=== PATIENT | female | born 1950 | race Caucasian/White ===

== ENCOUNTER → 2016-06-06 | Outpatient (CLI) | payer BC ==
[~2016-06-06] MED LIST: BUPRTAB51 PO; GLC500 PO; IBUP600T44 PO; LEVO75TA5 PO; MULT-506 PO; PRED1SUS3; ZCR10 PO
--- NOTE | 2016-06-06 14:34 | DIAGNOSTIC IMAGING REPORT ---
LEFT WRIST MIN 3 VIEWS ROUTINE CLINICAL HISTORY: LEFT WRIST FX fracture COMPARISON: 05/13/2016 DISCUSSION: Cortical fracture dorsal aspect distal radius is now apparent. There may be partial bony bridging and/or fibrous tissue formation. Estimated distraction is approximately 2.5 mm. Degenerative changes described previously are again noted. There is no evidence for soft tissue swelling. IMPRESSION: Avulsion fracture dorsal aspect distal radius showing potential early healing Electronically signed by: Domenic Rosales M.D. 06/06/2016 2:32 PM
== END | disposition home or self-care (01) ==
LOC: C.RDSM 08:00
PROVIDERS: ATTEND Family Medicine
DX: S62.102A Fracture of unspecified carpal bone, left wrist, initial encounter for closed fracture (principal); X58.XXXA Exposure to other specified factors, initial encounter

== ENCOUNTER → 2016-09-07 | Outpatient (CLI) | payer BC ==
[2016-09-07 13:34] LABS: ESTIMATED AVERAGE GLUCOSE 126 mg/dl; HA1C FLAG Normal (Normal)
[2016-09-07 13:58] LABS: ALB/GLOB RATIO 1.1 (0.9-2); ALT/SGPT 20 U/L (12-78); AST/SGOT 15 U/L (15-37); BLOOD UREA NITROGEN 15 mg/dl (7-18); BUN/CREATININE RATIO 12.8 (10-20); CALCIUM 9.1 mg/dl (8.5-10.1); CARBON DIOXIDE 32 mmol/L (21-32); CHLORIDE 104 mmol/L (98-107); GLUCOSE 102 mg/dl (70-99); POTASSIUM 4.3 mmol/L (3.5-5.1); SODIUM 141 mmol/L (136-145)
[2016-09-07 14:10] LABS: ALKALINE PHOSPHATASE 103 U/L (45-117)
--- NOTE | 2016-09-11 11:23 | CODING QUERY MEDICAL NECESSITY ---
SUPPORTING DIAGNOSIS NEEDED Dr. Dahl, A supporting diagnosis is required for the test/procedure performed on this patient in order for us to be reimbursed by the patient's insurance. Please provide a supporting diagnosis for the following test/procedure listed below next to the test name along with your signature. *If there is no additional diagnosis for this patient that would support the following test/procedure please document that below next to the test/procedure. Test(s)/Procedure(s) that require a supporting diagnosis: * ([id number]) VITAMIN D ASSAY DIAGNOSIS: DATE OF SERVICE: 09/07/16 Provider Signature: Date: Thank you Dheeraj Cooper [facility] Information Management Once completed, please kindly fax back to [phone] For questions please call [phone]
== END | disposition home or self-care (01) ==
LOC: C.LAB1850 11:56
PROVIDERS: ATTEND Internal Medicine
DX: E11.9 Type 2 diabetes mellitus without complications (principal); R53.83 Other fatigue; E55.9 Vitamin D deficiency, unspecified

== ENCOUNTER → 2016-11-23 | Outpatient (CLI) | payer BC ==
[2016-11-23 12:19] LABS: ALKALINE PHOSPHATASE 97 U/L (45-117); ALT/SGPT 25 U/L (12-78); AST/SGOT 19 U/L (15-37)
== END | disposition home or self-care (01) ==
LOC: C.LAB1850 10:49
PROVIDERS: ATTEND Internal Medicine
DX: B35.1 Tinea unguium (principal)

== ENCOUNTER → 2016-12-08 | Outpatient (CLI) | payer BC | END | disposition home or self-care (01) | LOC: C.LAB1850 13:42 | PROVIDERS: ATTEND Internal Medicine | DX: B35.1 Tinea unguium (principal) ==

== ENCOUNTER → 2017-05-18 | Outpatient (CLI) | payer BC ==
[2017-05-18 12:07] LABS: BASO % 0.6 %; BASO ABS # 0.05 K/uL (0-0.2); COMPLETE YES; EOS % 2.5 %; HEMATOCRIT 44.3 % (37-47); IG% 0.2 %; LYMPH % 19.4 %; LYMPH ABS # 1.76 K/uL (1.2-3.4); MEAN CELL VOLUME 93.5 fL (80-100); MEAN CORPUSCULAR HEMOGLOBIN 30.6 pg (25-34); MEAN CORPUSCULAR HGB CONC 32.7 g/dl (32-36); MONO % 6.4 %; NEUT % 70.9 %; PLATELET COUNT 238 K/uL (130-400); RED BLOOD COUNT 4.74 M/uL (4.2-5.4); WHITE BLOOD COUNT 9.05 K/uL (4.8-10.8)
[2017-05-18 12:18] LABS: ALT/SGPT 25 U/L (12-78); BLOOD UREA NITROGEN 16 mg/dl (7-18); BUN/CREATININE RATIO 12.8 (10-20); CALCIUM 9.3 mg/dl (8.5-10.1); CARBON DIOXIDE 29 mmol/L (21-32); CHLORIDE 103 mmol/L (98-107); CHOLESTEROL 232 mg/dl (0-200); CREATININE 1.22 mg/dl (0.60-1.20); GLUCOSE 92 mg/dl (70-99); POTASSIUM 4.2 mmol/L (3.5-5.1); SODIUM 138 mmol/L (136-145); TRIGLYCERIDES 202 mg/dl (0-150); VERY LOW DENSITY LIPOPROT CALC 40 mg/dl
[2017-05-18 12:21] LABS: ALB/GLOB RATIO 1.2 (0.9-2); ALKALINE PHOSPHATASE 112 U/L (45-117); AST/SGOT 19 U/L (15-37); CHOLESTEROL/HDL RATIO 3.5; HDL CHOLESTEROL 66 mg/dl; LDL CHOLESTEROL CALCULATED 126 mg/dl
== END | disposition home or self-care (01) ==
LOC: C.LAB1850 10:23
PROVIDERS: ATTEND Internal Medicine
DX: R53.83 Other fatigue (principal); E78.5 Hyperlipidemia, unspecified